=== PATIENT | female | born 1955 | race Hispanic/Latino ===

== ENCOUNTER 2017-10-28 10:05 | Emergency (ER) | payer BC, OTHER ==
[~2017-10-28] VITALS: Ht 160 cm; Wt 74.8 kg
[2017-10-28] MEDS ORDERED: DEXAMETHASONE SOD PHOS 10 MG/1 ML VIAL IV ONE (10:30)
[2017-10-28] MEDS ORDERED: KETOROLAC TROMETHAMINE 60 MG/2 ML VIAL IM ONE (11:30)
--- NOTE | 2017-10-28 12:37 | Diagnostic Imaging Report ---
Examination: CT LUMBAR SPINE WITHOUT CONTRAST History: Low back pain with left leg numbness. Comparison studies: None Technique: Axial images were obtained through the lumbar spine from L1. Coronal and sagittal reconstructions obtained from the axial data. Intravenous contrast: None Findings: The usual 5 non-rib bearing lumbar vertebral bodies are present. Alignment: Normal lordosis. No scoliosis. Soft tissues: No abnormalities. Paraspinal muscles: No abnormalities. Sacroiliac joints: Mild vacuum phenomenon of the anterior superior aspect. Vertebrae: No fractures, infection or neoplasm. Partially visualized hemangioma of the T12 vertebral body. Degenerative changes: L1-L2: No abnormalities. L2-L3: No abnormalities. L3-L4: Diffuse disc bulge and mild bilateral facet arthropathy results in mild bilateral neural foraminal narrowing. No canal stenosis. L4-L5: Diffuse disc bulge and mild bilateral facet arthropathy result in mild bilateral neural foraminal narrowing. No canal stenosis. L5-S1: Left central disc extrusion with inferior migration contacts the descending left S1 nerve root. Diffuse disc bulge and mild bilateral facet arthropathy result in moderate right and severe left neural foraminal narrowing No canal stenosis. IMPRESSION: 1. Degenerative changes of L3-L4 through L5-S1 with moderate right and severe left neural foraminal narrowing at L5-S1. 2. Contact of the descending left S1 nerve root by a left central disc extrusion at L5-S1. Signed by: Dr. Leti Salvador M.D. on 10/28/2017 12:34 PM
== END 2017-10-28 14:36 | disposition home or self-care (01) ==
LOC: ER 10:05
DX: M79.662 Pain in left lower leg (principal); M54.5 Low back pain; I10 Essential (primary) hypertension; E11.9 Type 2 diabetes mellitus without complications; F17.210 Nicotine dependence, cigarettes, uncomplicated
CPT/HCPCS: 72131; 93971; 99283; J1100; J1885

== ENCOUNTER → 2017-11-15 | Outpatient (CLI) | payer OTHER ==
--- NOTE | 2017-11-15 23:59 | Diagnostic Imaging Report ---
History: Low back pain, radiating along left lower extremity with associated numbness. Comparison studies: CT lumbar spine from 10/28/2017. Technique: Sagittal, coronal and axial T2 , sagittal T1 and IR, axial PD and T2 FS. Intravenous contrast: None Findings: Number of lumbar vertebral bodies: 5. Alignment: Normal lordosis. No scoliosis. Soft tissues: No T2 hyperintense inflammatory changes. Paraspinal muscles: No signal abnormalities. Well-preserved. No atrophic changes Lower thoracic cord: Normal in signal and morphology. The tip of the conus is at L1-L2 . Cauda equina: No masses. No arachnoiditis. Vertebrae: Multifocal well-circumscribed T1 and heterogeneously hyperintense, T2 and STIR hyperintense lesions within the vertebral bodies, particularly at T12, L1, L2 and L3 , the largest lesion is in T12 vertebral body measures 1.9 cm in maximum craniocaudad dimension with each of these lesions having internal striations, represents vertebral body hemangiomas. No compression fractures, infection or neoplasm. Degenerative changes: L1-L2: No abnormalities L2-L3: No abnormalities L3-L4: Mild degenerative disc disease. Disc bulge and thickened ligamentum flavum effaces anterior thecal sac without significant canal stenosis. Mild bilateral foraminal stenosis. Mild bilateral (right more than left) facet arthrosis. L4-L5: Mild degenerative disc disease and posterior annular fissure. Disc bulge and thickened ligamentum flavum without canal stenosis. Mild bilateral foraminal stenosis. Mild bilateral facet arthrosis. 2 mm subchondral cyst in right facet joint. L5-S1: Moderate degenerative disc disease with decreased intervertebral disc space and decreased T2 signal. Disc bulge with superimposed 7.5 mm left paracentral disc extrusion with 1.2 cm inferior migration which indents and asymmetrically effaces anterior thecal sac resulting in mild canal stenosis. The extruded disc has STIR hyperintense signal which represents edema. Disc extrusion impinges on left S1 nerve root. Mild bilateral foraminal stenosis. IMPRESSION: 1. Lumbar spondylosis extends from level L3-L4 to L5-S1, with mild canal stenosis at L5-S1. 2. Mild bilateral foraminal stenosis at L3-L4, L4-L5 and L5-S1. 3. Left central/paracentral disc extrusion impinges left S1 nerve root (was seen in prior CT lumbar spine however evaluation is suboptimal as comparison is between 2 different modalities). Signed by: Dr. Laura Frank M.D. on 11/15/2017 11:55 PM
== END ==
LOC: MRI 16:32
PROVIDERS: ATTEND Family Medicine
DX: M54.5 Low back pain (principal); M54.30 Sciatica, unspecified side
CPT/HCPCS: 72148

== ENCOUNTER 2017-12-07 06:17 | Observation (INO) | payer OTHER ==
[2017-12-06 09:32] LABS: BASOPHILS # (AUTO) 0.1 (0.0-0.1); BASOPHILS % 0.7 % (0.0-1.0); EOSINOPHILS # (AUTO) 0.6 (0.0-0.4); EOSINOPHILS % 7.2 % (0.0-6.0); HEMATOCRIT 40.7 % (34.2-44.1); HEMOGLOBIN 13.2 g/dL (12.0-16.0); LYMPHOCYTES # (AUTO) 2.5 (1.0-3.2); MEAN CORPUSCULAR HEMOGLOBIN 27.8 pg (28-32); MEAN CORPUSCULAR HGB CONC 32.4 g/dL (31-35); MEAN CORPUSCULAR VOLUME 85.7 fL (81-99); MONOCYTES # (AUTO) 0.5 (0.2-0.8); MONOCYTES % 6.3 % (4.4-11.3); NEUTROPHILS # (AUTO) 4.8 (2.1-6.9); NEUTROPHILS % 56.4 % (38.7-80.0); PLATELET COUNT 274 x10e3/uL (140-360); RED BLOOD COUNT 4.75 x10e6/uL (3.6-5.1); RED CELL DISTRIBUTION WIDTH 12.9 % (11.7-14.4)
[2017-12-06 09:47] LABS: PARTIAL THROMBOPLASTIN TIME 26.3 seconds (23.8-35.5); PROTHROMBIN TIME 12.4 seconds (11.9-14.5)
[2017-12-06 10:16] LABS: ANION GAP 13.5 mmol/L (8-16); BLOOD UREA NITROGEN 10 mg/dL (7-26); BUN/CREATININE RATIO 13 (6-25); CALCIUM 9.4 mg/dL (8.4-10.2); CARBON DIOXIDE 28 mmol/L (22-29); CHLORIDE 104 mmol/L (98-107); CREATININE, SERUM 0.76 mg/dL (0.57-1.11); EST GLOMERULAR FILTRATION RATE > 60 ML/MIN (60-); GLUCOSE 127 mg/dL (74-118); POTASSIUM 4.5 mmol/L (3.5-5.1); SODIUM 141 mmol/L (136-145)
--- NOTE | 2017-12-06 10:29 | Diagnostic Imaging Report ---
PROCEDURE: Frontal and lateral views of the chest. COMPARISON: None. INDICATIONS: PRE OPERATIVE CHEST X-RAY FOR BACK SURGERY FINDINGS: Lines/tubes: None. Lungs: The lungs are well inflated and clear. There is no evidence of pneumonia or pulmonary edema. Pleura: There is no pleural effusion or pneumothorax. Heart and mediastinum: The heart and the mediastinum are normal. Bones: No acute bony abnormality. Degenerative changes of the thoracic spine. IMPRESSION: No acute radiographic abnormality. Dictated by: Anatoly Randolph M.D. on 12/06/2017 at 10:30 Electronically approved by: Anatoly Randolph M.D. on 12/06/2017 at 10:30
[~2017-12-07] VITALS: Ht 160 cm; Wt 74.8 kg
[~2017-12-07 06:17] MED LIST: ATORVASTATIN CA10 MG PO; LISINOPRIL40 MG PO; METFORMIN HCL500 MG PO
--- OUTSIDE RECORDS SUMMARY | 2017-12-07 06:19 | XMS REPORT | Continuity of Care Document ---
Author Author [facility] Organization [facility] Address [address] [place] [address] Phone Unavailable Care Team Providers Care Maori Physiotherapist Name Role Phone LORI JEWELL MD PCP Insurance Providers Guarantor PathakCece hess Address [address] [place] [address] Email PT DECLINED [facility] Policy Number [id number] Subscriber's Name Cece Pathak Relationship 18 Self / Same As Patient Group Number [id number] Group Name [employer] Effective Date 12 Advance Directives Directive Response Recorded Date/Time Does the patient have an advance directive? No 11/02/12 7:27pm If yes, is advance directive on file with [facility]? No 11/02/12 7:27pm If not on file with [facility] will patient provide a copy? No 11/02/12 7:27pm Do you have a Directive to Physician? No 10/28/17 12:55pm Do you have a Medical Power of Gear Technician? No 10/28/17 12:55pm Do you have an out of hospital Do Not Resuscitate Order? No 10/28/17 12:55pm Do you have any special needs we should be aware of? No 10/28/17 12:55pm Do you have a support person here with you today? No 10/28/17 12:55pm Did patient receive Notice of Privacy Practices? Yes 10/28/17 12:55pm Did patient receive patient rights and responsibilities? Yes 10/28/17 12:55pm Problems No problem information available. Medications No known medications. Social History Smoking Status Start Date Stop Date Current every day smoker Hospital Discharge Instructions No hospital discharge instruction information available. Plan of Care Discharge Date 10/28/17 2:36pm Disposition HOME, SELF-CARE Condition at Discharge Stable Instructions/Education Provided Sciatica Forms Provided Work/School Excuse Prescriptions See Medication Section Referrals LORI JEWELL MD Order Date: Call for an appointment Address: [address] [place] [id number] Note: Take Motrin 400mg to 600mg every 4-6 hours as needed for pain. Follow up with Dr. Jewell is pain does not resolve in next week. Return to the Emergency Department for any shortness of breath, loss of bowel or bladder control, numbness around your rectum, or any new concerns. Additional Instructions/Education No heavy lifting or strenuous activity. Take Motrin 400mg to 600mg every 4-6 hours as needed for pain. Follow up with Dr. Jewell is pain does not resolve in next week. Return to the Emergency Department for any shortness of breath, loss of bowel or bladder control, numbness around your rectum, or any new concerns. Functional Status No functional status information available. Allergies, Adverse Reactions, Alerts No known allergies. Immunizations No immunization information available. Vital Signs Acute Vital Signs Vital Response Date/Time Height 5 ft 3 in 10/28/2017 10:19am Weight 165 lb 10/28/2017 10:19am Body Mass Index 29.2 kg/m^2 10/28/2017 10:19am Results No relevant diagnostic test, laboratory data and/or discharge summary information available. Procedures Procedure Status Date Provider(s) Computed tomography of lumbar spine without contrast Active 10/28/17 REHAN CARD [employer] Encounters Encounter Location Arrival/Admit Date Discharge/Depart Date Attending Provider Departed Emergency Room [facility] 10/28/17 10:05am 10/28 2:36pm RODOLFO THOMPSON MD
--- OUTSIDE RECORDS SUMMARY | 2017-12-07 06:19 | XMS REPORT ---
Author Author [facility] Address Unknown Phone Unavailable Care Team Providers Care Spanish Lecturer Name Role Phone WASHINGTON DIAZ Unavailable Unavailable LORI JEWELL Unavailable Unavailable RODOLFO THOMPSON Unavailable Unavailable Problems This patient has no known problems. Allergies, Adverse Reactions, Alerts This patient has no known allergies or adverse reactions. Medications This patient has no known medications. Results Test Description Test Time Test Comments Text Results Atomic Results Result Comments CHEST 2 VIEWS [place] [address] Patient Name: INOCENTE DOWELL MR #: [id number] : 1955 Age/Sex: 62/F Req # : [id number] Adm Physician: Ordered by: WASHINGTON DIAZ MD Report #: [id number] Location: OR Room/Bed: Procedure: [id number] DX/CHEST 2 VIEWS Exam Date: 12/06/17 Exam Time: 0950 REPORT STATUS: Signed PROCEDURE: Frontal and lateral views of the chest. COMPARISON: None. INDICATIONS: PRE OPERATIVE CHEST X- RAY FOR BACK SURGERY FINDINGS: Lines/tubes: None. Lungs: The lungs are well inflated and clear. There is no evidence of pneumonia or pulmonary edema. Pleura: There is no pleural effusion or pneumothorax. Heart and mediastinum: The heart and the mediastinum are normal. Bones: No acute bony abnormality. Degenerative changes of the thoracic spine. IMPRESSION: No acute radiographic abnormality. Dictated by: Michelle Gunderson M.D. on 12/06/2017 at 10:30 Electronically approved by: Michelle Gunderson M.D. on 12/06/2017 at 10:30 Dictated By : MICHELLE GUNDERSON MD 1030 Transcribed By: MARIA on 12/06/17 1030 COPY TO: WASHINGTON DIAZ MD MRI SPINE LUMBAR WO [place] [address] Patient Name: INOCENTE DOWELL MR #: [id number] : 1955 Age/Sex: 62/F Req #: [id number] Adm Physician: Ordered by: LORI JEWELL MD Report #: [id number] Location: MRI Room/Bed: Procedure: [id number] MRI/MRI SPINE LUMBAR WO Exam Date: Exam Time: REPORT STATUS: Signed History: Low back pain, radiating along left lower extremity with associated numbness. Comparison studies: CT lumbar spine from 10/28/2017. Technique: Sagittal , coronal and axial T2 , sagittal T1 and IR, axial PD and T2 FS. Intravenous contrast: None Findings: Number of lumbar vertebral bodies: 5. Alignment: Normal lordosis. No scoliosis. Soft tissues: No T2 hyperintense inflammatory changes. Paraspinal muscles: No signal abnormalities. Well- preserved. No atrophic changes Lower thoracic cord: Normal in signal and morphology. The tip of the conus is at L1-L2 . Cauda equina: No masses. No arachnoiditis. Vertebrae: Multifocal well-circumscribed T1 and heterogeneously hyperintense, T2 and STIR hyperintense lesions within the vertebral bodies, particularly at T12, L1, L2 and L3 , the largest lesion is in T12 vertebral body measures 1.9 cm in maximum craniocaudad dimension with each of these lesions having internal striations, represents vertebral body hemangiomas. No compression fractures, infection or neoplasm. Degenerative changes: L1-L2: No abnormalities L2-L3: No abnormalities L3-L4: Mild degenerative disc disease. Disc bulge and thickened ligamentum flavum effaces anterior thecal sac without significant canal stenosis. Mild bilateral foraminal stenosis. Mild bilateral (right more than left) facet arthrosis. L4-L5: Mild degenerative disc disease and posterior annular fissure. Disc bulge and thickened ligamentum flavum without canal stenosis. Mild bilateral foraminal stenosis. Mild bilateral facet arthrosis. 2 mm subchondral cyst in right facet joint. L5-S1: Moderate degenerative disc disease with decreased intervertebral disc space and decreased T2 signal. Disc bulge with superimposed 7.5 mm left paracentral disc extrusion with 1.2 cm inferior migration which indents and asymmetrically effaces anterior thecal sac resulting in mild canal stenosis. The extruded disc has STIR hyperintense signal which represents edema. Disc extrusion impinges on left S1 nerve root. Mild bilateral foraminal stenosis. IMPRESSION: 1. Lumbar spondylosis extends from level L3-L4 to L5-S1, with mild canal stenosis at L5-S1. 2. Mild bilateral foraminal stenosis at L3-L4, L4-L5 and L5-S1. 3. Left central/paracentral disc extrusion impinges left S1 nerve root (was seen in prior CT lumbar spine however evaluation is suboptimal as comparison is between 2 different modalities). Signed by: Dr. Laura Frank M.D. on 11/15/2017 11:55 PM Dictated By : LAURA FRANK MD [id number] Transcribed By: YOKO on 11/15/17 5879 COPY TO: LORI JEWELL MD CT LUMBAR SPINE [place] [address] Patient Name: INOCENTE DOWELL MR #: [id number] : 1955 Age/Sex: 62/F Req #: [id number] Adm Physician: Ordered by: REHAN CARD NP Report #: [id number] Location: Room/Bed: Procedure: [id number] CT/CT LUMBAR SPINE WO Exam Date: 10/28/17 Exam Time: 1100 REPORT STATUS: Signed Examination: CT LUMBAR SPINE WITHOUT CONTRAST History: Low back pain with left leg numbness. Comparison studies: None Technique: Axial images were obtained through the lumbar spine from L1. Coronal and sagittal reconstructions obtained from the axial data. Intravenous contrast: None Findings: The usual 5 non-rib bearing lumbar vertebral bodies are present. Alignment: Normal lordosis. No scoliosis. Soft tissues: No abnormalities. Paraspinal muscles: No abnormalities. Sacroiliac joints: Mild vacuum phenomenon of the anterior superior aspect. Vertebrae: No fractures, infection or neoplasm. Partially visualized hemangioma of the T12 vertebral body. Degenerative changes: L1-L2: No abnormalities. L2-L3: No abnormalities. L3-L4: Diffuse disc bulge and mild bilateral facet arthropathy results in mild bilateral neural foraminal narrowing. No canal stenosis. L4-L5: Diffuse disc bulge and mild bilateral facet arthropathy result in mild bilateral neural foraminal narrowing. No canal stenosis. L5-S1: Left central disc extrusion with inferior migration contacts the descending left S1 nerve root. Diffuse disc bulge and mild bilateral facet arthropathy result in moderate right and severe left neural foraminal narrowing No canal stenosis. IMPRESSION: 1. Degenerative changes of L3-L4 through L5-S1 with moderate right and severe left neural foraminal narrowing at L5-S1. 2. Contact of the descending left S1 nerve root by a left central disc extrusion at L5-S1. Signed by: Dr. Leti Salvador M.D. on 10/28/2017 12:34 PM Dictated By: LETI VALERIO MD 1234 Transcribed By: YOKO on 10/28/17 1234 COPY TO: REHAN CARD SENIOR QA ANALYST
[2017-12-07] MEDS ORDERED: BACITRACIN 50,000 UNIT VIAL ONE (06:44)
[2017-12-07] MEDS ORDERED: THROMBIN FOR SOLN 5,000 UNIT VIAL ONE (06:44)
[2017-12-07] MEDS ORDERED: GELATIN SPONGE SZ 100 ONE (06:44)
[2017-12-07] MEDS ORDERED: BUPIVACAINE 0.5%/EPI 30 ML SDV INJ ONE (06:44)
[2017-12-07] MEDS ORDERED: ACETAMINOPHEN 1000 MG/100 ML 100 ML IV ONE (07:03)
[2017-12-07] MEDS ORDERED: LIDOCAINE HCL (LTA) 4 ML SOLN ONE (07:03)
[2017-12-07] MEDS ORDERED: CEFAZOLIN SOD 1 GM VIAL ONE (07:17)
[2017-12-07] MEDS ORDERED: METOCLOPRAMIDE HCL 10 MG/2ML VIAL ONE (10:11)
[2017-12-07] MEDS ORDERED: FENTANYL CITRATE/PF 100MCG/2 ML INJ ONE ×2 (10:46→16:55)
[2017-12-07] MEDS ORDERED: ACETAMINOPHEN 325 MG TAB PO PRN (11:00)
[2017-12-07] MEDS ORDERED: CARISOPRODOL 350 MG TAB PO PRN (11:00)
[2017-12-07] MEDS ORDERED: OXYCODONE/ACETAMINOPHEN 5-325 1 EACH TABLET PO PRN (11:00)
[2017-12-07] MEDS ORDERED: HYDROMORPHONE 2MG/ML INJ IV PRN (11:00)
[2017-12-07] MEDS ORDERED: MORPHINE SULFATE 5 MG/ML VIAL IM PRN (11:00)
[2017-12-07] MEDS ORDERED: MAGNESIUM/ALUMINUM/SIMETHICONE 30 ML UDC PO PRN (11:00)
[2017-12-07] MEDS ORDERED: PROMETHAZINE HCL (IM) 25 MG/ML VIAL IM PRN (11:00)
[2017-12-07] MEDS ORDERED: ONDANSETRON HCL INJ 2 MG/ML VIAL IV PRN (11:00)
[2017-12-07 11:33] VITALS: BP 123/66
[2017-12-07 11:44] VITALS: BP 120/69
--- NOTE | 2017-12-07 13:59 | Operative Report ---
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 POSTOPERATIVE DIAGNOSIS: Left L5-S1 axillary disk herniation with severe radiculopathy, M51.17. PROCEDURE: Left L5-S1 laminotomy, medial facetectomy, and microsurgical diskectomy, [address]. ANESTHESIA: General. INDICATIONS: Patient is a 62-year-old woman who presents with a left L5-S1 disk extrusion with inferior migration of the extruded disk fragment into the region of the axilla of the left S1 nerve root. She has a severe left S1 radiculopathy and was taken to operating room for microsurgical diskectomy. PROCEDURE: After induction of general anesthesia, the patient was placed on the operating table in prone position over a Adolph frame. Lumbar region was prepped and draped in sterile fashion. A preoperative x-ray was obtained. A small midline incision was created. Lumbar fascia was opened left of midline and subperiosteal dissection was carried out to expose the left side of the L5-S1 laminae and the medial aspect of the facet joint. A 2nd x-ray confirmed correct localization. The operating microscope was brought in. A high-speed drill equipped with mishel bur was used to drill the inferior aspect of lamina of L5, the superior rim of the lamina of S1 and the medial aspect of the left L5-S1 facet joint. The ligamentum flavum was resected. The dural sac and the S1 nerve root were exposed. The axilla of the S1 nerve root were exposed. The herniated disk material immediately came into view in the region of the axilla of the nerve root. The epidural veins in this region were bipolar coagulated and divided with microscissors. The herniated disk material was retrieved with a micro ball probe and grasped with a micro pituitary rongeur and carefully delivered out of the region of the axilla of the S1 nerve root. This achieved immediate decompression of the S1 nerve root which then allowed us to be able to retract it medially. The opening into the annulus of the disk was enlarged with a number 11 blade and the loose contents of the degenerated L5-S1 disk were conservatively evacuated with curettes and pituitary rongeurs. Meticulous hemostasis was secured. Retractor was removed. The lumbar fascia was closed with 0 Vicryl sutures. Subcutaneous layer was closed with 2-0 Vicryl sutures. The skin was closed with 3-0 Monocryl sutures in subcuticular fashion. Steri strips and dressing were applied. The patient was awakened, extubated and taken to post anesthesia care unit in stable condition. No intraoperative complications were encountered. Estimated blood loss was 10 mL. Job#: [id number] SUSAN
[2017-12-07] MEDS ORDERED: CEFAZOLIN SOD 1 GM/NS 50ML 50 ML IV SCH (14:00)
[2017-12-07] MEDS: LACTATED RINGER'S 1,000 ML IV SCH (15:00)
[2017-12-07 15:34] VITALS: BP 123/67
[2017-12-07] MEDS: CEFAZOLIN SOD 1 GM VIAL IV SCH (15:48)
[2017-12-07] MEDS ORDERED: ONDANSETRON HCL 4 MG ORAL DISINTEGRATING TAB SL PRN (16:00)
[2017-12-07] MEDS: METFORMIN HCL 500 MG TAB PO SCH (16:10)
[2017-12-07] MEDS ORDERED: MIDAZOLAM HCL 2 MG/2 ML VIAL ONE (16:55)
[2017-12-07] MEDS ORDERED: GLYCOPYRROLATE INJ 1MG/ 5 ML SYR IV ONE (16:58)
[2017-12-07] MEDS ORDERED: LIDOCAINE HCL 2% LOCAL INJ 5 ML SDV VIAL INJ ONE (16:58)
[2017-12-07] MEDS ORDERED: SEVOFLURANE INHAL SOLN 250 ML PEN BTL INH ONE (16:58)
[2017-12-07] MEDS ORDERED: ONDANSETRON HCL INJ 2 MG/ML VIAL IV ONE (16:58)
[2017-12-07] MEDS ORDERED: ROCURONIUM BROMIDE 10 MG/ML 5ML VIAL IV ONE (16:58)
[2017-12-07] MEDS ORDERED: LIDOCAINE HCL 2% JELLY 5 ML TUBE TOP ONE (16:58)
[2017-12-07] MEDS ORDERED: NEOSTIGMINE 5 MG/5ML SYR IV ONE (16:58)
[2017-12-07] MEDS ORDERED: PROPOFOL IV EMULSION 10 MG/ML 20 ML VIAL IV ONE (16:58)
[2017-12-07] MEDS ORDERED: DEXAMETHASONE SOD PHOS INJ 4 MG/ML VIAL IV ONE (16:58)
[2017-12-07 18:50] VITALS: BP 142/85
[2017-12-07 20:00] VITALS: BP 142/85
[2017-12-07] MEDS ORDERED: NON-FORMULARY MEDICATION (Lisinopril 40 MG) PO SCH (21:00)
[2017-12-07] MEDS ORDERED: LISINOPRIL 20 MG TAB PO SCH (21:00)
[2017-12-07] MEDS ORDERED: ZOLPIDEM TARTRATE 5 MG TAB PO PRN (21:00)
[2017-12-07] MEDS ORDERED: ATORVASTATIN 10 MG TAB PO SCH (21:00)
[2017-12-08] VITALS: BP 115/65
[2017-12-08] MEDS: CEFAZOLIN SOD 1 GM VIAL IV SCH ×2 (00:07→09:12)
[2017-12-08] MEDS: LACTATED RINGER'S 1,000 ML IV SCH (00:33)
[2017-12-08 04:00] VITALS: BP 115/67
[2017-12-08 08:15] VITALS: BP 121/63
[2017-12-08] MEDS: METFORMIN HCL 500 MG TAB PO SCH (09:12)
== END 2017-12-08 09:20 | disposition home or self-care (01) ==
LOC: OR 06:17 → IMCU 11:05
PROVIDERS: ADMIT Neurological Surgery; ATTEND Neurological Surgery
DX: M51.17 Intervertebral disc disorders with radiculopathy, lumbosacral region (principal); I10 Essential (primary) hypertension; E78.5 Hyperlipidemia, unspecified; E11.9 Type 2 diabetes mellitus without complications; F17.210 Nicotine dependence, cigarettes, uncomplicated
CPT/HCPCS: 36415 ×3; 63047; 71046; 72020; 80048; 82948 ×2; 85025; 85610; 85730; 86850; 86900; 88304; 93005; G0378 ×2; J0690 ×2; J1100; J1170; J2001 ×2; J2250; J2270; J2405; J2765; J7120 ×2

== ENCOUNTER 2019-05-03 18:13 | Emergency (ER) | payer BC ==
[~2019-05-03] VITALS: Ht 160 cm; Wt 74.8 kg
[~2019-05-03 18:13] MED LIST changes: +DIAZEPAM 5 MG TAB PO ONE
[2019-05-03] MEDS ORDERED: KETOROLAC TROMETHAMINE 30 MG/ML VIAL IV STA (19:52)
[2019-05-03] MEDS ORDERED: METHYLPREDNISOLONE SOD SUCC 125 MG/2ML VIAL IV ONE (20:00)
[2019-05-03] MEDS ORDERED: DIAZEPAM 2 MG TAB PO ONE (20:00)
[2019-05-03] MEDS ORDERED: DIAZEPAM 5 MG TAB PO ONE (20:15)
--- NOTE | 2019-05-03 20:46 | Diagnostic Imaging Report ---
Lumbar Spine Radiographs: 5 views including obliques HISTORY: Back pain COMPARISON: None available. DISCUSSION: The osseous structures are partially obscured by stool and bowel gas. Diffusely decreased mineralization of the osseous structures limits bone detail. Overlying including artifacts. Five non-rib bearing lumbar vertebral bodies. The alignment of the spine is within normal limits. No displaced fracture or compression deformity is identified. Disc Spaces: Multilevel degenerative changes, moderate at L5-S1. Facets: Multilevel degenerative changes, moderate at L4-5 and severe at L5-S1. IMPRESSION: 1. No acute radiographic abnormality. 2. Multilevel degenerative changes, most notably at L5-S1. 3. Diffuse osseous demineralization. Signed by: Dr. Dago Goodman D.O., M.M.M. on 05/03/2019 8:43 PM
[2019-05-03] MEDS ORDERED: ULTRAM50 MG PO (22:43)
[2019-05-03] MEDS ORDERED: PREDNISONE20 MG PO (22:43)
[2019-05-03] MEDS ORDERED: ROBAXIN-750750 MG PO (22:43)
[2019-05-03] MEDS ORDERED: VALIUM2 MG PO (22:43)
[2019-05-03 23:33] VITALS: BP 126/80
== END 2019-05-03 23:00 | disposition home or self-care (01) ==
LOC: ER 18:13
DX: M54.42 Lumbago with sciatica, left side (principal); S39.012A Strain of muscle, fascia and tendon of lower back, initial encounter
CPT/HCPCS: 72110; 96374; 96375; 99282; J1885; J2930

== ENCOUNTER → 2019-05-13 | Outpatient (CLI) | payer OTHER ==
[~2019-05-13] MED LIST changes: -DIAZEPAM 5 MG TAB PO ONE; +GADOBENATE DIMEGLUMINE 1 ML IV ONE; +PREDNISONE20 MG PO; +ROBAXIN-750750 MG PO; +ULTRAM50 MG PO; +VALIUM2 MG PO
[2019-05-13 14:17] LABS: BLOOD UREA NITROGEN 9 mg/dL (7-26); BUN/CREATININE RATIO 11 (6-25); CREATININE, SERUM 0.81 mg/dL (0.57-1.11); EST GLOMERULAR FILTRATION RATE > 60 ML/MIN (60-)
--- NOTE | 2019-05-14 07:13 | Diagnostic Imaging Report ---
EXAMINATION: MRI of the lumbar spine without and with contrast HISTORY: Severe low back pain radiating along the back of the left lower extremity with numbness and weakness for the last 2 weeks. TECHNIQUE: Sagittal T1, T2, STIR; axial T2 and proton density. Postcontrast axial and sagittal T1 fat sat. Intravenous contrast:15 mL of MultiHance. FINDINGS: It is assumed that there are 5 lumbar vertebrae. Curvature/Alignment: Normal lordosis. Vertebrae: No evidence of recent fracture, infection, or neoplasm. Unchanged prominent benign hemangiomas in the T12, L1, L2 and L3 vertebral bodies. Conus: Normal, terminating at L1-L2 Cauda equina: Unremarkable. Lower thoracic: Unremarkable. Paraspinal soft tissues: Unremarkable. Degenerative changes: L1-L2: Unremarkable. L2-L3: Minimal decrease in signal intensity and facet arthrosis without canal or foraminal stenosis. L3-L4: Decreased T2 signal intensity, symmetric disc bulge and mild facet arthroses. Mild bilateral foraminal narrowing. L4-L5: Mild symmetric disc bulge, small posterior annular fissure, mild ligamenta flava thickening and facet processes. Minimal foraminal narrowing. L5-S1: -Degenerative disc height and T2 signal intensity, symmetric disc bulge and bilateral facet arthrosis. Mild right and moderate left foraminal stenosis. -Left-sided laminectomy and discectomy as clearly seen disc herniation. Small amount of enhancing scar tissue within the left lateral recess is encasing the traversing left S1 nerve root. IMPRESSION: 1. Status post discectomy L5-S1 without evidence of residual or recurrent disc. However small amount of scar tissue is encasing the left S1 nerve root. 2. Mild degenerative bilateral foraminal stenosis at L3-L4 as well as mild right and moderate left at L5-S1. Signed by: Dr. Ema Freed M.D. on 05/14/2019 7:10 AM
== END ==
LOC: MRI 13:27
PROVIDERS: ATTEND Neurological Surgery
DX: M51.17 Intervertebral disc disorders with radiculopathy, lumbosacral region (principal)
CPT/HCPCS: 36415; 72158; 82565; 84520; A9577

== ENCOUNTER → 2020-08-14 | Outpatient (CLI) | payer OTHER ==
[~2020-08-14] MED LIST changes: +COVID-19 VACC, MRNA(MODERNA)/PF 100 MCG/0.5 ML VIAL IM ONE; -GADOBENATE DIMEGLUMINE 1 ML IV ONE
== END ==
LOC: VACCPMC 16:30
DX: Z23 Encounter for immunization (principal); Z20.822 Contact with and (suspected) exposure to COVID-19

== ENCOUNTER → 2020-09-11 | Outpatient (CLI) | payer OTHER | END | DRG 951 | LOC: VACCPMC 10:30 | DX: Z23 Encounter for immunization (principal); Z20.822 Contact with and (suspected) exposure to COVID-19 | CPT/HCPCS: 0012A; 91301 ==